=== PATIENT | female | born 1985 | race Caucasian/White ===

== ENCOUNTER → 2020-08-21 | Outpatient (CLI) | payer OTHER ==
[~2020-08-21] MED LIST: NORCO 5-325 TA1 EAC1 PO
[2020-08-22 06:06] LABS: GLYCOHEMOGLOBIN (HGB A1C) 4.9 % (4.8-5.6)
== END ==
LOC: LAB 11:47
PROVIDERS: ATTEND Obstetrics & Gynecology
DX: Q05.9 Spina bifida, unspecified (principal)

== ENCOUNTER 2020-09-04 11:31 | Emergency (ER) | payer OTHER ==
[~2020-09-04] VITALS: Ht 152.4 cm; Wt 73.5 kg
[2020-09-04 13:31] VITALS: BP 123/77
--- NOTE | 2020-09-04 13:40 | EKG ---
[facility] [place] [address] ELECTROCARDIOGRAM REPORT Name: EVANGELINA GAN Room #: DEP [facility]#: [id number] Admission: 09/04/20 Attend Phys: Discharge: 09/04/20 Date of : 81 Report #: [id number] THIS REPORT FOR: cc: Trupti Villalobos DNP, Mary E. DNP Santiago, Patrick MD [facility] ~ THIS REPORT FOR: //name// [facility] ED Test Date: 2020-09-04 Test Time: 12:15:20 Pat Name: EVANGELINA GAN Department: Room: Gender: F Hospital Sales Representative: constantino : 1985 Requested By: Jong Little Order Number: [id number] MD: Abdiel Norman Measurements Intervals [place] Rate: 88 P: 32 RI: 142 QRS: 47 QRSD: 84 T: 19 QT: 361 QTc: 437 Interpretive Statements Sinus rhythm No previous ECG available for comparison Electronically Signed On 09-04-2020 13:40:21 CDT by Abdiel Norman [email or web address] <ELECTRONICALLY SIGNED> By: Abdiel Norman MD, FACC 09/04/20 1340 1215 14 Abdiel Norman MD, FACC /EPI
== END 2020-09-04 13:31 | disposition home or self-care (01) ==
LOC: ER 11:31
DX: O26.892 Other specified pregnancy related conditions, second trimester (principal); R05 Cough; R06.02 Shortness of breath; R09.81 Nasal congestion; Z20.828 Contact with and (suspected) exposure to other viral communicable diseases; Z3A.17 17 weeks gestation of pregnancy

== ENCOUNTER → 2020-09-10 | Outpatient (CLI) | payer OTHER | LOC: ULTRA 08:53 | PROVIDERS: ATTEND Obstetrics & Gynecology | DX: O09.512 Supervision of elderly primigravida, second trimester (principal); Z3A.18 18 weeks gestation of pregnancy ==

== ENCOUNTER → 2020-09-24 | Outpatient (CLI) | payer OTHER | LOC: LAB 10:36 | PROVIDERS: ATTEND Nurse Practitioner | DX: Z20.828 Contact with and (suspected) exposure to other viral communicable diseases (principal) ==

== ENCOUNTER → 2020-11-24 | Outpatient (CLI) | payer OTHER ==
[2020-11-24 10:15] LABS: HEMATOCRIT 35.3 % (37.0-47.0); HEMOGLOBIN 11.8 gm/dL (12.0-15.0); MCH 31.7 pg (26.0-34.0); MCHC 33.4 g/dL (28.0-37.0); MCV 94.8 fL (80.0-100.0); RBC 3.72 mil/uL (4.20-5.00); RDW 12.7 % (10.5-14.5)
== END ==
LOC: LAB 09:12
PROVIDERS: ATTEND Obstetrics & Gynecology
DX: Z34.92 Encounter for supervision of normal pregnancy, unspecified, second trimester (principal)

== ENCOUNTER → 2020-12-11 | Outpatient (CLI) | payer OTHER ==
[2020-12-11 12:32] LABS: URINE CREATININE-RANDOM* 109.3 mg/dL
[2020-12-11 12:47] LABS: ABSOLUTE NEUTROPHILS 7.7 thou/uL (1.4-8.2); BASOPHILS 0.4 % (0.0-2.0); EOSINOPHILS 0.4 % (0.0-3.0); HEMOGLOBIN 12.3 gm/dL (12.0-15.0); LYMPHOCYTES 17.3 % (24.0-44.0); MCH 31.1 pg (26.0-34.0); MCHC 33.3 g/dL (28.0-37.0); MCV 93.4 fL (80.0-100.0); MONOCYTES 4.1 % (1.0-8.0); PLATELET COUNT 212 thou/uL (150-400); POLYS 77.8 % (36.0-66.0); RBC 3.97 mil/uL (4.20-5.00); RDW 12.4 % (10.5-14.5); WBC 9.8 thou/uL (4.0-11.0)
[2020-12-11 13:02] LABS: ALBUMIN 2.5 g/dL (3.4-5.0); CALCIUM 8.6 mg/dL (8.5-10.1); CREATININE 0.6 mg/dL (0.6-1.0); POTASSIUM 3.8 mmol/L (3.5-5.1); TOTAL BILIRUBIN 0.2 mg/dL (0.2-1.0); TOTAL PROTEIN 6.3 g/dL (6.4-8.2); URIC ACID* 4.6 mg/dL (2.6-6.0)
[2020-12-11 13:21] LABS: PROT/CREAT RATIO 0.3; URINE PROTEIN-RANDOM* 28.9 mg/dL (<11.9)
== END ==
LOC: LAB 11:34
PROVIDERS: ATTEND Obstetrics & Gynecology
DX: O28.3 Abnormal ultrasonic finding on antenatal screening of mother (principal)